=== PATIENT | male | born 1960 ===

== ENCOUNTER 2018-03-16 09:51 | Day surgery (SDC) | payer MEDICARE ==
[~2018-03-16] VITALS: Ht 175.3 cm; Wt 91.3 kg
[~2018-03-16 09:51] MED LIST: BASAGLAR K100 UNIT/1 SC; BUPR100 PO; Glucophage1000 MG PO; LISI20 PO; METF500 PO; Percocet 5-3251 EACH PO; TAMS.4ER PO
== END 2018-03-16 11:38 | disposition home or self-care (01) ==
LOC: ORSCSDS 09:51
PROVIDERS: Surgery
PROC: 0DJD8ZZ Inspection of Lower Intestinal Tract, Via Natural or Artificial Opening Endoscopic (ICD-10-PCS; principal; 2018-03-16 11:00)
DX: Z12.11 Encounter for screening for malignant neoplasm of colon (principal); I10 Essential (primary) hypertension; E11.9 Type 2 diabetes mellitus without complications; E78.5 Hyperlipidemia, unspecified; Z79.84 Long term (current) use of oral hypoglycemic drugs; Z87.891 Personal history of nicotine dependence; Z79.4 Long term (current) use of insulin; Z79.899 Other long term (current) drug therapy
CPT/HCPCS: 82947; J7120

== ENCOUNTER 2022-08-03 00:58 | Inpatient (IN) | payer MEDICARE ==
[2022-08-03] VITALS (68 sets, daily range): BP systolic 126–202; BP diastolic 62–137
[~2022-08-03] VITALS: Ht 172.7 cm; Wt 100.0 kg
[~2022-08-03 00:58] MED LIST changes: -Glucophage1000 MG PO
[2022-08-03 01:57] LABS: BASOPHILS ABSOLUTE AUTO 0.04 K/mm3 (0.00-0.23); BASOPHILS PERCENT AUTO 1 % (0-2); EOSINOPHILS ABSOLUTE AUTO 0.18 K/mm3 (0.00-0.68); EOSINOPHILS PERCENT AUTO 3 % (0-6); Hematocrit 38.5 % (37.0-53.0); Hemoglobin 13.3 g/dL (13.5-17.5); IMMATURE GRAN ABSOLUTE AUTO 0.04 K/mm3 (0.00-0.10); IMMATURE GRAN PERCENT AUTO 1 % (0-1); LYMPHOCYTES ABSOLUTE AUTO 1.79 K/mm3 (0.84-5.20); LYMPHOCYTES PERCENT AUTO 33 % (21-46); MONOCYTES ABSOLUTE AUTO 0.79 K/mm3 (0.16-1.47); MONOCYTES PERCENT AUTO 15 % (4-13); Mean Corpuscular HGB 31.2 pg (26.0-34.0); Mean Corpuscular HGB Conc 34.5 g/dL (31.5-36.5); Mean Corpuscular Volume 90 fL (80-100); Mean Platelet Volume 10.2 fL (9.1-12.4); NEUTROPHILS ABSOLUTE AUTO 2.55 K/mm3 (1.96-9.15); NEUTROPHILS PERCENT AUTO 47 % (41-73); Platelet Count 150 K/mm3 (150-400); RDW Standard Deviation 42.8 fL (35.1-46.3); Red Blood Cell Count 4.26 M/mm3 (4.30-5.90); White Blood Cell Count 5.39 K/mm3 (4.00-11.30)
[2022-08-03 01:57] LABS: Source, Urine Clean Catch
[2022-08-03 02:00] LABS: Bilirubin, Urine Neg (Neg); Blood, Urine 1+ (Neg); Glucose Qualitative, Urine 4+ (Neg); Ketones, Urine 1+ (Neg); Leukocyte Esterase, Urine Neg (Neg); Nitrite, Urine Neg (Neg); Protein, Urine 2+ (Neg); Specific Gravity, Urine 1.015 (1.003-1.022); Urobilinogen, Urine NORM (Normal); pH, Urine 6.5 (5.0-8.0)
[2022-08-03 02:10] LABS: International Normalized Ratio 0.98; Prothrombin Time Results 10.3 Sec (9.7-11.5)
[2022-08-03 02:12] LABS: Appearance, Urine Clear (Clear); Color, Urine Yellow (P-Yellow)
[2022-08-03 02:13] LABS: Bacteria Not Seen /hpf; Red Blood Cells, Urine 0-2 /hpf (0-2); Squamous Epithelial Cells Not Seen /hpf (Few); White Blood Cells, Urine Not Seen /hpf (0-5)
[2022-08-03 02:23] LABS: Albumin, Blood 3.4 g/dL (3.4-5.0); Bilirubin, Total 0.3 mg/dL (0.1-1.0); Bun/Creatinine Ratio 18.9 (12.0-20.0); Calcium, Blood 8.6 mg/dL (8.5-10.1); Creatinine, Blood 0.74 mg/dL (0.60-1.20); Globulin, Blood 3.3 g/dL (2.2-4.0); Magnesium, Blood 1.4 mg/dL (1.6-2.4); Potassium, Blood 4.1 mmol/L (3.5-5.5); Thyroid Stimulating Hormone 1.89 uIU/mL (0.360-4.800); Total Protein, Blood 6.7 g/dL (6.4-8.2)
--- NOTE | 2022-08-03 08:13 | NUR ---
AM NOTE.... ASSUMED CARE OF PT AT 0700. PT IS A&Ox4, EXPRESSIVE APHASIA NOTED ON NEURO ASSESSMENT, NO OTHER DEFICITS NOTED. PT IS C/O OF 8/10 HEADACHE TO THE RIGHT SIDE OF HIS HEAD, THIS WAS MEDICATED PER EMAR WITH GOOD RESULTS. HE IS IN SR IN THE 70'S-80'S. PT IS HYPERTENSIVE WITH SBPs 180'S-200'S PER HE WANTS PERMISSIVE HYPERTENSION NO GREATER THAN 170'S. NO EDEMA NOTED ON THIS ASSESSMENT. BT PRESENT AND NORMOACTIVE, ABD SOFT AND NONTENDER TO PALPATION. PT IS C/O OF NAUSEA THIS WAS ALSO MEDICATED PER EMAR. 3208 DR. CREWS AT THE BEDSIDE TO ASSESS THE PT. CALL LIGHT IN REACH WILL CONITNUE TO MONITOR.
[2022-08-03] MEDS ORDERED: NOVOLOG FL100 UNIT/3 SC (14:46)
--- NOTE | 2022-08-03 16:04 | NUR ---
PT UPDATE.... PT STARTED TO C/O OF INCREASED PAIN TO THE RIGHT SIDE OF HIS HEAD, HE ALSO STARTED TO HAVE INCREASED ANXIETY DURING THIS TIME. PT'S PAIN MEDICATION WAS INCREASED DURING THIS TIME, THE INCREASED DOSE DID NOT SEEM TO HELP WITH THE PAIN. THIS RN NOTED INCREASED WORD SALAD WHEN BEFORE HE WAS ABLE TO RESPOND APPROPRIATELY TO QUESTIONS SOME OF THE TIME, CURRENTLY HE IS UNABLE TO RESPOND APPROPRIATELY TO ANY QUESTION. ALSO NOTED THAT HIS RIGHT HAND CLINICAL OB HAS BECOME SLIGHTLY MORE WEAK AND HIS RIGHT ARM AND LEG HAS BECOME MORE AWKWARD WITH MOVEMENTS. PT'S SBP IS 150'S-160'S ON THE NICARDIPINE DRIP AT 10MG/HR. PROVIDER WAS NOTIFIED, NEW ORDERS GIVEN FOR A STAT HEAD CT. REPORT GIVEN TO ALPHONSO CORNELIUS RN WHO IS ASSUMING CARE.
--- NOTE | 2022-08-03 16:50 | NUR ---
Assumed care at approximately 1610. Report received from offgoing RN. Pt taken for stat head CT by extension service specialist in charge, no new infarcts found. Pt resting in bed, on RA. Pt alert, having difficulty expressing himself and finding words to communicate with. Physical exam agrees with previous color strainer. Nicardipine infusing at 10 mg/hr. Pt hypertensive, VS otherwise WNL. Will continue to monitor.
--- NOTE | 2022-08-03 18:17 | NUR ---
Shift summary. No acute events since assuming care. Pt medicated for worsening headache, see EMAR. See chart for further details. Will continue to monitor and report off to jose LYNN.
--- NOTE | 2022-08-03 20:30 | NUR ---
PATIENT AWAKE CONTINUES TO C/O HEADACHE HAS DIFFICULTY DESCRIBING TYPE OF PAIN POINTING MOSTLY TO LEFT FOREHEAD AREA. CALLED DOCTOR BURDEN TO CLARIFY PLAN FOR THE NIGHT AND TO NOTIFY HIM OF CONTINUED HEADACHE. TYLENOL CHANGED TO 1000 MG Q8. ATTEMPTING ICE PACK OR COOL CLOTH, PATIENT REMOVED. PATIENT ABLE TO SWALLOW WITHOUT DIFFICULTY. ALVARENGA, RIGHT A LITTLE SLOWER THAN LEFT, BUT APPEAR TO HAVE EQUIL STRENGTH.
[2022-08-04] VITALS (23 sets, daily range): BP systolic 127–173; BP diastolic 73–98
--- NOTE | 2022-08-04 00:58 | NUR ---
NICARDIPINE DRIP OFF, PATIENT CONTINUES TO HAVE DIFFICULTY WITH FINDING THE CORRECT WORDS TO EXPRESS SELF, BUT IS ABLE TO MAKE NEEDS KNOWN. HEADACHE BETTER, DENIES NEED FOR PAIN MEDICATION.
[2022-08-04 03:38] LABS: BASOPHILS ABSOLUTE AUTO 0.04 K/mm3 (0.00-0.23); BASOPHILS PERCENT AUTO 1 % (0-2); EOSINOPHILS PERCENT AUTO 1 % (0-6); Hematocrit 40.6 % (37.0-53.0); Hemoglobin 14.4 g/dL (13.5-17.5); IMMATURE GRAN ABSOLUTE AUTO 0.02 K/mm3 (0.00-0.10); IMMATURE GRAN PERCENT AUTO 0 % (0-1); LYMPHOCYTES ABSOLUTE AUTO 1.75 K/mm3 (0.84-5.20); LYMPHOCYTES PERCENT AUTO 21 % (21-46); MONOCYTES ABSOLUTE AUTO 1.16 K/mm3 (0.16-1.47); MONOCYTES PERCENT AUTO 14 % (4-13); Mean Corpuscular HGB 31.6 pg (26.0-34.0); Mean Corpuscular HGB Conc 35.5 g/dL (31.5-36.5); Mean Corpuscular Volume 89 fL (80-100); Mean Platelet Volume 9.7 fL (9.1-12.4); NEUTROPHILS ABSOLUTE AUTO 5.26 K/mm3 (1.96-9.15); NEUTROPHILS PERCENT AUTO 63 % (41-73); Platelet Count 170 K/mm3 (150-400); RDW Coefficient Variation 12.8 % (11.7-14.2); RDW Standard Deviation 41.8 fL (35.1-46.3); Red Blood Cell Count 4.56 M/mm3 (4.30-5.90); White Blood Cell Count 8.33 K/mm3 (4.00-11.30)
[2022-08-04 03:59] LABS: Albumin, Blood 3.5 g/dL (3.4-5.0); Albumin/Globulin Ratio 0.9 (0.8-1.8); Bilirubin, Total 0.7 mg/dL (0.1-1.0); Bun/Creatinine Ratio 19.5 (12.0-20.0); Calcium, Blood 8.9 mg/dL (8.5-10.1); Creatinine, Blood 0.67 mg/dL (0.60-1.20); Globulin, Blood 3.7 g/dL (2.2-4.0); Magnesium, Blood 1.4 mg/dL (1.6-2.4); Potassium, Blood 4.1 mmol/L (3.5-5.5); Total Protein, Blood 7.2 g/dL (6.4-8.2)
--- NOTE | 2022-08-04 05:33 | NUR ---
SUMMARY PATIENT SLEEPING OFF AND ON T/O NIGHT. NICARDIPINE OFF AT 2300. SBP REMAINS LESS THAN 175. PATIENT NO LONGER C/O MUELLER. CONTINUES TO HAVE APHASIA. ABLE TO MAKE NEEDS KNOWN BUT NOT ALWAYS WITH CORRECT WORDING. ALVARENGA WITHOUT DIFFICULTY. NEEDING ASSIST WITH URINAL PLACEMENT, ABLE TO STAND AT BEDSIDE, DID NOT TRY AMBULATING.
--- NOTE | 2022-08-04 06:00 | NUR ---
PATIENT AWAKE USING CALL LIGHT, HAVING DRY HEAVES. NAUSEA GONE WITH ZOFRAN, TYLENOL GIVEN FOR RETURN OF MUELLER.
--- NOTE | 2022-08-04 07:00 | NUR ---
ASSUME CARE: I have assumed care of this patient.
--- NOTE | 2022-08-04 11:41 | NUR ---
MRI Pt to immaging with tech. Telemetry disconnected for procedure.
--- NOTE | 2022-08-04 12:06 | NUR ---
BACK TO ROOM: Pt back to room from MRI. He is able to transfer self from chair back to bed
--- NOTE | 2022-08-04 13:30 | NUR ---
UPDATE ON FAMILY CONVERSATIONS AND PHONE CALL'S. STAFF HAS HAD 2 PHONE CALL'S FROM SISTER VENESSA AND ONE FROM SON AMNOJ. JENNIFER'S PARVEEN IS IN THE ROOM AND HAS EXPRESSED NOT TO GIVE INFORMATION OUT TO FAMILY ON ANY UPDATES ABOUT JENNIFER OR HIS CONDITION. SHE STATED SHE WILL BE THE ONE TO CALL THEM AND GIVE THEM UPDATES. SISTER VENESSA IS PERSISTANCE ON THE PHONE HOWEVER SHE WAS TOLD THAT JENNIFER'S PARVEEN AND JENNIFER DOES NOT WANT TO SPEAK WITH HER AT THIS TIME.. JENNIFER IS HAVING A DIFFICULT TIME EXPRESSING HIS WORDS AND IS UPSET TO TRY AND TALK TO HIS FAMILY AT THIS TIME. PARVEEN AND JENNIFER ARE TRYING TO CONVERSE AT BEDSIDE HOWEVER IT IS STILL DIFFICULT FOR JENNIFER TO FIND THE WORDS TO SAY. IT WAS EXPRESSED TO VENESSA BY THIS NURSE THAT IT IS NOT IN JENNIFER'S BEST INTEREST TO GET WORKED UP ABOUT ANYTHING AT THIS TIME. HOWEVER THIS NURSE WAS NOT STATING EXACTLY WHY DO TO THE WISHES OF THE PATIENT AND HIS FOR US PERSONEL TO NOT GIVE OUT ANY INFORMATION ABOUT JENNIFER AND HIS CONDITION.
--- NOTE | 2022-08-04 15:20 | NUR ---
SHIFT/TRANSFER SUMMARY: Pt to MRI this morning. His headache has been treated with PRN oxycodone and tylenol. Mild receptive aphasia with expressive aphasia noted with no other obvious neurological deficits. Pt able to transfer self from bed to wheelchair. He uses his call light appropriately and voids with assistance using the urinal while dangling at bedside. Systolic BP within desired parameters. at bedside and updated on plan of care. Report given to CULINARY ART TEACHER.
--- NOTE | 2022-08-04 18:00 | NUR ---
SHIFT SUMMARY ASSUMED CARE OF PT THIS AFTERNOON. PT ARRIVED FROM ICU IN WHEELCHAIR, AMBULATED TO BED INDEPENDENTLY. PT ALERT, EXPRESSIVE APHAGIA NOTED. PT HAS DIFFICULT TIME MAKING NEEDS KNOWN. GESTURING AND SHOWING ITEMS HELPS PT IDENTIFY NEEDS. SP02>90% ON RA. VSS. PT STANDS AT SIDE OF BED SBA TO VOID IN URINAL. IN ROOM. HELPED PT EAT DINNER THIS EVENING AND BRUSH TEETH. CALL LIGHT IN REACH. PT ORIENTED TO ROOM.
[2022-08-05 03:31] VITALS: BP 147/93
[2022-08-05 04:40] LABS: BASOPHILS ABSOLUTE AUTO 0.04 K/mm3 (0.00-0.23); BASOPHILS PERCENT AUTO 1 % (0-2); EOSINOPHILS ABSOLUTE AUTO 0.16 K/mm3 (0.00-0.68); EOSINOPHILS PERCENT AUTO 2 % (0-6); Hematocrit 39.6 % (37.0-53.0); IMMATURE GRAN ABSOLUTE AUTO 0.02 K/mm3 (0.00-0.10); IMMATURE GRAN PERCENT AUTO 0 % (0-1); LYMPHOCYTES ABSOLUTE AUTO 2.08 K/mm3 (0.84-5.20); LYMPHOCYTES PERCENT AUTO 31 % (21-46); MONOCYTES ABSOLUTE AUTO 1.03 K/mm3 (0.16-1.47); MONOCYTES PERCENT AUTO 16 % (4-13); Mean Corpuscular HGB 31.5 pg (26.0-34.0); Mean Corpuscular HGB Conc 35.4 g/dL (31.5-36.5); Mean Corpuscular Volume 89 fL (80-100); Mean Platelet Volume 9.7 fL (9.1-12.4); NEUTROPHILS ABSOLUTE AUTO 3.32 K/mm3 (1.96-9.15); NEUTROPHILS PERCENT AUTO 50 % (41-73); Platelet Count 159 K/mm3 (150-400); RDW Coefficient Variation 12.7 % (11.7-14.2); RDW Standard Deviation 41.2 fL (35.1-46.3); Red Blood Cell Count 4.45 M/mm3 (4.30-5.90); White Blood Cell Count 6.65 K/mm3 (4.00-11.30)
[2022-08-05 04:54] LABS: Bun/Creatinine Ratio 18.2 (12.0-20.0); Calcium, Blood 8.7 mg/dL (8.5-10.1); Creatinine, Blood 0.72 mg/dL (0.60-1.20)
--- NOTE | 2022-08-05 05:04 | NUR ---
SHIFT SUMMARY PT A&Ox4, CALLS APPROPRIATELY, APHASIA IS CLEARING UP MORE THROUGHOUT SHIFT. PT STATED THAT HE IS EXCITED ABOUT IS SPEECH CLEARING. BP KEPT WITHIN ORDERED SBP WINDOW, SINUS 70's, DENIES CP/PRESSURE. SpO2> 92% RA, DENIES SOB. EQUAL DRIVER ENGINEER STRENGTHS. PT USED URINAL IND AT BEDSIDE. NO OTHER EVENTS, WILL REPORT TO ONCOMING RN.
[2022-08-05 07:45] VITALS: BP 156/92
[2022-08-05 11:24] VITALS: BP 140/98
[2022-08-05] MEDS ORDERED: ATOR80 PO (12:57)
[2022-08-05] MEDS ORDERED: ASPI81CH PO (12:57)
[2022-08-05] MEDS ORDERED: CLOP75 PO (12:57)
[2022-08-05] MEDS ORDERED: NIFE60ER PO (12:58)
--- NOTE | 2022-08-05 14:40 | NUR ---
DISCHARGE SUMMARY PT A&OX4. VSS. DISCHARGE INSTRUCTIONS, AFTER CARE OF ZIO PATCH REVIEW W/ PT. MEDICATIONS REVIEWED W/ PT AND EDUCATION GIVEN ON NEW MEDICATIONS. FAXED TO [facility]. IV REMOVED, TELE REMOVED. HR PLACED ZIO PATCH. CLOTHING GIVEN FROM KULWINDER MCCAIN D/T PT NOT HAVING CLOTHES WITH HIM. PT WHEELED TO PRIVATE VEHICLE.
[2022-08-05] MEDS ORDERED: METF500 PO ×2 (23:41)
[2022-08-06] MEDS ORDERED: BRILINTA60 MG PO (00:17)
[2022-08-07] MEDS ORDERED: BASAGLAR K100 UNIT/1 SC (10:59)
[2022-08-07] MEDS ORDERED: TICA90TA PO (11:00)
== END 2022-08-05 14:40 | disposition home or self-care (01) | DRG 65 ==
LOC: ER 00:58 → ICUE 00:59 → PCU 08-04 15:56
PROVIDERS: Family Medicine; Internal Medicine; Student in an Organized Health Care Education/Training Program; ADMIT Internal Medicine
DX: I63.9 Cerebral infarction, unspecified (principal); I16.1 Hypertensive emergency; R47.01 Aphasia; E11.9 Type 2 diabetes mellitus without complications; E78.5 Hyperlipidemia, unspecified; R47.1 Dysarthria and anarthria; I10 Essential (primary) hypertension; M19.90 Unspecified osteoarthritis, unspecified site; Z79.4 Long term (current) use of insulin; Z79.899 Other long term (current) drug therapy; Z87.891 Personal history of nicotine dependence; Z98.890 Other specified postprocedural states; Z96.652 Presence of left artificial knee joint; Z90.01 Acquired absence of eye
CPT/HCPCS: 36415; 70450; 70496; 70498; 70551; 80048; 80053; 81001; 82947; 83735; 84100; 84443; 85025; 85610; 92610; 93005; 93010; 93246; 93306; 96365-59; 96366; 96368; 96372; 96375; 96375-59; 96376; 97116; 97162; 97165; 97530; 99285-25; A9270; G0378; J0360; J1650; J1815; J2405; J3010; J3475; J7050; Q9967

== ENCOUNTER 2024-11-30 13:40 | Emergency (ER) | payer MEDICARE ==
[~2024-11-30] VITALS: Ht 175.3 cm; Wt 81.7 kg
[~2024-11-30 13:40] MED LIST changes: -OMEP20ER PO; -ONDA4ODT MM
[2024-11-30 14:34] LABS: CORONAVIRUS COVID-19 AG Negative (NEGATIVE)
[2024-11-30] MEDS ORDERED: NS 1,000 ML IV SCH (16:25)
[2024-11-30] MEDS ORDERED: Ondansetron HCl 2 MG / ML 2ML Vial IV ONE (16:25)
[2024-11-30 17:52] LABS: pH Blood Venous 7.34 (7.34-7.37)
[2024-11-30] MEDS ORDERED: Lidocaine 2% Viscous Soln 15 ML UDC PO ONE (17:55)
[2024-11-30 18:04] LABS: Alanine Aminotransfer (ALT/SGP 44.0 U/L (12-78); Albumin, Blood 2.9 g/dL (3.4-5.0); Albumin/Globulin Ratio 0.7 (0.8-1.8); Anion Gap 16.0 mmol/L (3-11); Aspartate Aminotrans (AST/SGOT 40.0 U/L (12-37); Bilirubin, Total 0.8 mg/dL (0.1-1.0); Blood Urea Nitrogen 24.0 mg/dL (8-24); CO2, Blood 18.0 mmol/L (21-32); Calcium, Blood 8.8 mg/dL (8.5-10.1); Chloride, Blood 101.0 mmol/L (98-108); Creatinine, Blood 0.83 mg/dL (0.60-1.20); Globulin, Blood 4.0 g/dL (2.2-4.0); Glucose, Blood 286.0 mg/dL (70-99); Potassium, Blood 3.8 mmol/L (3.5-5.5); Sodium, Blood 131.0 mmol/L (136-145); Total Protein, Blood 6.9 g/dL (6.4-8.2)
[2024-11-30 19:00] VITALS: BP 164/99
[2024-11-30] MEDS ORDERED: OMEP20ER PO (19:00)
[2024-11-30] MEDS ORDERED: ONDA4ODT MM (19:00)
== END 2024-11-30 19:10 | disposition home or self-care (01) ==
LOC: ER 13:40
PROVIDERS: Emergency Medicine; Physician Assistant
DX: E11.65 Type 2 diabetes mellitus with hyperglycemia (principal); E86.0 Dehydration; I10 Essential (primary) hypertension; R11.2 Nausea with vomiting, unspecified; R05.9 Cough, unspecified; Z87.891 Personal history of nicotine dependence; Z79.84 Long term (current) use of oral hypoglycemic drugs; Z79.4 Long term (current) use of insulin; Z79.82 Long term (current) use of aspirin; Z79.899 Other long term (current) drug therapy
CPT/HCPCS: 71046; 80053; 82803; 85025; 87428-QW; 96361; 96374; 99284-25; A9270; J2405; J7030

== ENCOUNTER → 2024-11-30 | Outpatient (CLI) | payer MEDICARE ==
[~2024-11-30] MED LIST changes: +ASPI81CH PO; +ATOR80 PO; +BRILINTA60 MG PO; +CLOP75 PO; +NIFE60ER PO; +NOVOLOG FL100 UNIT/3 SC; +OMEP20ER PO; +ONDA4ODT MM; +TICA90TA PO
[2024-11-30 11:31] LABS: BASOPHILS ABSOLUTE AUTO 0.07 K/mm3 (0.00-0.23); BASOPHILS PERCENT AUTO 0 % (0-2); EOSINOPHILS ABSOLUTE AUTO 0.04 K/mm3 (0.00-0.68); EOSINOPHILS PERCENT AUTO 0 % (0-6); Hematocrit 42.9 % (37.0-53.0); Hemoglobin 14.9 g/dL (13.5-17.5); IMMATURE GRAN ABSOLUTE AUTO 0.11 K/mm3 (0.00-0.10); IMMATURE GRAN PERCENT AUTO 1 % (0-1); LYMPHOCYTES ABSOLUTE AUTO 1.43 K/mm3 (0.84-5.20); LYMPHOCYTES PERCENT AUTO 8 % (21-46); MONOCYTES ABSOLUTE AUTO 1.69 K/mm3 (0.16-1.47); MONOCYTES PERCENT AUTO 9 % (4-13); Mean Corpuscular HGB Conc 34.7 g/dL (31.5-36.5); Mean Corpuscular Volume 89 fL (80-100); NEUTROPHILS ABSOLUTE AUTO 14.57 K/mm3 (1.96-9.15); NEUTROPHILS PERCENT AUTO 81 % (41-73); NRBC ABSOLUTE 0.00 K/mm3 (0.00-0.02); NRBC Auto 0.0 /100 WBC (0.0-0.2); Platelet Count 221 K/mm3 (150-400); RDW Coefficient Variation 13.1 % (11.7-14.2); RDW Standard Deviation 42.3 fL (35.1-46.3)
[2024-11-30 11:41] LABS: Alanine Aminotransfer (ALT/SGP 53.0 U/L (12-78); Albumin, Blood 3.5 g/dL (3.4-5.0); Albumin/Globulin Ratio 0.7 (0.8-1.8); Anion Gap 24.0 mmol/L (6-16); Aspartate Aminotrans (AST/SGOT 38.0 U/L (12-37); Bilirubin, Total 0.9 mg/dL (0.1-1.0); Blood Urea Nitrogen 29.0 mg/dL (8-24); CO2, Blood 19.0 mmol/L (21-32); Calcium, Blood 10.8 mg/dL (8.5-10.1); Chloride, Blood 92.0 mmol/L (98-108); Creatinine, Blood 1.54 mg/dL (0.60-1.20); Globulin, Blood 4.8 g/dL (2.2-4.0); Glucose, Blood 337.0 mg/dL (70-99); Potassium, Blood 4.1 mmol/L (3.5-5.5); Sodium, Blood 131.0 mmol/L (136-145); Total Protein, Blood 8.3 g/dL (6.4-8.2)
== END ==
LOC: LAB SHORT 11:22 → LAB 11:22
PROVIDERS: Physician Assistant
DX: R11.2 Nausea with vomiting, unspecified (principal)
CPT/HCPCS: 80053; 85025